=== PATIENT | female | born 1990 | race Caucasian/White ===

== ENCOUNTER → 2016-06-21 | Outpatient (CLI) | payer OTHER | END | disposition home or self-care (01) | LOC: LABWHC1 15:38 | PROVIDERS: ATTEND Nurse Practitioner Acute Care | DX: R90.82 White matter disease, unspecified (principal) | CPT/HCPCS: 36415; 82040; 82042; 82784; 83873; 83916; 84157; 87476; 89050 ==

== ENCOUNTER → 2016-07-12 | Outpatient (CLI) | payer OTHER ==
--- NOTE | 2016-07-13 10:42 | MR ---
MR brain with and without contrast HISTORY: Multiple sclerosis EXAMINATION TYPE: MR brain wo/w con DATE OF EXAM: 07/13/2016 5:57 AM COMPARISON: Prior MR brain third of May 2015 TECHNIQUE: Multiplanar, multisequence images of the brain and brainstem is performed without and with utilizing 15 mL intravenous MultiHance gadolinium contrast. Demyelinating disease protocol with additional Sag ittal Flair sequence performed. FINDINGS: T2 Lesions Present : Yes Approximate Number of Lesions: 2 Locations Identified : Periventricular Size of Reference Lesion(s): Stable compared to previous Enhancing Lesion(s) Present: No T1 Hypointense Lesion(s) Present: Change from Prior: Stable Diffusion weighted images demonstrate no evidence of a recent infarct or other diffusion abnormality. There is no worrisome extra-axial fluid collection. The ventricular system and cisternal spaces ar e normal in size and appearance. The brain volume is age appropriate. Midline structures demonstrate normal morphology. The craniocervical junction appears within normal limits. Post contrast images demonstrate no abnormal enhancement. The dural venous sinuses appear pa tent. The visualized sinuses are showing some minimal inflammatory change in the ethmoid air cells, mucoperiosteal thickening in the maxillary sinus and the globes are intact. IMPRESSION: Stable exam. Indeterminate right frontal white matter hyperintensities of questionable clinical signi ficance.
== END | disposition home or self-care (01) ==
LOC: RADMRIMAIN 18:46
PROVIDERS: ATTEND Nurse Practitioner Acute Care
DX: R90.82 White matter disease, unspecified (principal)
CPT/HCPCS: 70553; A9577

== ENCOUNTER 2016-10-31 02:25 | Emergency (ER) | payer OTHER ==
[2016-10-31] MEDS ORDERED: KETOROLAC 30 MG/ML 1 ML VIAL IVP STA (03:07)
[2016-10-31] MEDS ORDERED: METOCLOPRAMIDE 5 MG/ML 2 ML VIAL IVP STA (03:07)
[2016-10-31] MEDS ORDERED: diphenhydrAMINE 50 MG/ML 1 ML VIAL IVP STA (03:07)
[2016-10-31] MEDS ORDERED: SODIUM CHLORIDE 0.9% 1,000 ML IV STA (03:07)
--- NOTE | 2016-10-31 04:22 | ED ---
Headache HPI - General Chief Complaint: Headache Stated Complaint: Migraine Time Seen by Provider: 10/31/16 02:51 Mode of arrival: ambulatory Limitations: no limitations - History of Present Illness Initial Comments: 26-year-old female patient presents to emergency department today with complaints of right-sided headache. Patient states headache has been present for the last 3 days. States she does have a history of migraine headaches and occipital neuritis. Patient states that headache symptoms are consistent with her usual migraine pattern. Patient states that she has taken for Fioricet tablets today which is unusual for her. Patient states she has been mildly nauseated, does have photosensitivity, and sound sensitivity. The patient denies any dizziness, weakness, neck pain, back pain, abdominal pain, chest pain , shortness of breath, current nausea or vomiting. Denies any fever or chills. States she does have a blurred vision in her right eye which is also very usual for her migraine symptoms. - Related Data Home Medications Medication Instructions Recorded Confirmed Cetirizine HCl 10 mg PO DAILY 03/07/16 07/30/16 Butalb/Asprin/Caff 50-325-40Mg 1 - 2 cap PO Q4HR 07/28/16 07/30/16 [Fiorinal 50-325-40 MG] Multivit with Calcium,Iron,Min 1 each PO DAILY 07/28/16 07/30/16 [Women's Multivitamin] traMADol HCL [Ultram] 50 mg PO Q4HR PRN 07/28/16 07/30/16 Allergies Allergy/AdvReac Type Severity Reaction Status Date / Time Milk Containing Products Allergy Anaphylaxis Verified 10/31/16 02:33 [Dairy] codeine AdvReac Vomiting Verified 10/31/16 02:33 Review of Systems ROS Statement: Those systems with pertinent positive or pertinent negative responses have been documented in the HPI. ROS Other: All systems not noted in ROS Statement are negative. Past Medical History Past Medical History: No Reported History Additional Past Medical History / Comment(s): optic neuritis History of Any Multi-Drug Resistant Organisms: None Reported Past Surgical History: Cholecystectomy Additional Past Surgical History / Comment(s): sinus surgery, eye surgery Past Psychological History: No Psychological Hx Reported Smoking Status: Never smoker Past Alcohol Use History: None Reported Past Drug Use History: None Reported General Exam Limitations: no limitations General appearance: alert, in no apparent distress Head exam: Present: atraumatic, normocephalic, normal inspection Eye exam: Present: normal appearance, PERRL, EOMI. Absent: scleral icterus, conjunctival injection, periorbital swelling ENT exam: Present: normal exam, normal oropharynx, mucous membranes moist, TM's normal bilaterally Neck exam: Present: normal inspection, full ROM, other (No Meningismus present) . Absent: tenderness, meningismus, lymphadenopathy Respiratory exam: Present: normal lung sounds bilaterally. Absent: respiratory distress, wheezes, rales, rhonchi, stridor Cardiovascular Exam: Present: regular rate, normal rhythm, normal heart sounds. Absent: systolic murmur, diastolic murmur, rubs, gallop, clicks GI/Abdominal exam: Present: soft, normal bowel sounds. Absent: distended, tenderness, guarding, rebound, rigid Extremities exam: Present: normal inspection, full ROM, normal capillary refill. Absent: tenderness, pedal edema, joint swelling, calf tenderness Back exam: Present: normal inspection Neurological exam: Present: alert, oriented X3, CN II-XII intact Psychiatric exam: Present: normal affect, normal mood Skin exam: Present: warm, dry, intact, normal color. Absent: rash Course Vital Signs 10/31/16 02:31 Temperature 97.6 F Pulse Rate 78 Respiratory 18 Rate Blood Pressure 113/71 O2 Sat by Pulse 99 Oximetry - Reevaluation(s) Reevaluation #1: 10/31/16 04:22 Checked in with patient who states that her pain is now a 2 out of 10 on the pain scale. Patient states her symptoms are much improved. We'll complete fluid bolus. Medical Decision Making - Medical Decision Making 26-year-old female patient presented today for complaints of migraine headache that was not responsive to her usual migraine medications. Patient was given Benadryl, Reglan, Toradol, and IV fluids which did improve her symptoms. Patient reported that symptoms were typical of her usual migraine pattern. Patient will be discharged home with instructions to continue use of her normal migraine medications. Patient struck to the [facility] primary care physician for recheck in 1-2 days. Patient instructed to return for any new, worsening, or concerning symptoms. Patient verbalizes understanding and agrees with this plan. Disposition Clinical Impression: Migraine Disposition: HOME SELF-CARE Condition: Good Instructions: Migraine Headache (ED) Additional Instructions: Continue home prescriptions for migraine symptom control. Follow up with primary care physician in one to 2 days for recheck. Return for any new, worsening, or concerning symptoms. Referrals: Jeff Zapien Jr, DO [Primary Care Provider] - 1-2 days Time of Disposition: 05:07
[2016-10-31 05:30] VITALS: BP 104/69; PULSE 72; RESP 16; TEMP 98.3
== END 2016-10-31 05:32 | disposition home or self-care (01) ==
LOC: EC 02:25
DX: G43.909 Migraine, unspecified, not intractable, without status migrainosus (principal); H46.9 Unspecified optic neuritis; Z98.890 Other specified postprocedural states; Z79.899 Other long term (current) drug therapy; Z91.011 Allergy to milk products; Z88.5 Allergy status to narcotic agent; Z79.82 Long term (current) use of aspirin
CPT/HCPCS: 99283 ×2; 96374 ×2; 96375 ×3; J1200; J2765; J1885

== ENCOUNTER → 2017-02-15 | Outpatient (CLI) | payer OTHER ==
--- NOTE | 2017-02-16 00:34 | MR ---
EXAMINATION TYPE: MR brain wo/w con DATE OF EXAM: 02/15/2017 COMPARISON: 07/12/2016 HISTORY: MS Progression TECHNIQUE: Multiplanar, multisequence images of the brain and brainstem is performed without and with IV contras t, utilizing 7.5 mL intravenous Gadavist . FINDINGS: Ventricles and sulci appear normal. There is no mass effect nor midline shift. There is no sign of in tracranial hemorrhage. There is a 4 mm focus of increased signal at the white matter right frontal lo be on the T2 and FLAIR images. The brainstem appears normal. Corpus callosum appears normal. I see no pathologic enhancement. Sella turcica appears normal. IMPRESSION: Single focus of increased signal is small in the right frontal lobe and unchanged compare d to last exam. I do not see any significant evidence for demyelinating disease.
== END | disposition home or self-care (01) ==
LOC: RADMRIMAIN 18:57
PROVIDERS: ATTEND Nurse Practitioner Acute Care
DX: G35 Multiple sclerosis (principal); Z88.5 Allergy status to narcotic agent; Z88.8 Allergy status to other drugs, medicaments and biological substances
CPT/HCPCS: 70553; A9581

== ENCOUNTER → 2017-02-21 | Outpatient (CLI) | payer OTHER ==
[2017-02-21 14:56] LABS: Basophils % (A) 0 %; CH 30.3; CHCM 33.1; Eosinophils # (A) 0.1 k/uL (0-0.7); Eosinophils % (A) 1 %; HCT 43.3 % (34.0-46.0); HDW 2.55; Luc # (Auto) 0.09; Luc % (Auto) 2; Lymphocytes # (A) 1.3 k/uL (1.0-4.8); Lymphocytes % (A) 24 %; MCH 29.6 pg (25.0-35.0); MCHC 32.3 g/dL (31.0-37.0); MCV 91.8 fL (80.0-100.0); Mean Platelet Volume 8.3; Monocytes # (A) 0.3 k/uL (0-1.0); Monocytes % (A) 6 %; Neutrophils # (A) 3.4 k/uL (1.3-7.7); Neutrophils % (A) 67 %; RBC 4.71 m/uL (3.80-5.40); RDW 12.6 % (11.5-15.5); WBC 5.1 k/uL (3.8-10.6); WBC (Perox) 5.08
[2017-02-21 15:58] LABS: ALT 31 U/L (9-52); AST 19 U/L (14-36); Alkaline Phosphatase 46 U/L (38-126); Anion Gap 9 mmol/L; Blood Urea Nitrogen 13 mg/dL (7-17); Calcium 9.1 mg/dL (8.4-10.2); Carbon Dioxide 23 mmol/L (22-30); Chloride 108 mmol/L (98-107); Glucose 84 mg/dL (74-99); Non-African American GFR(MDRD) >60 (>60 ml/min/1.73 sqM); Potassium 4.3 mmol/L (3.5-5.1); Sodium 140 mmol/L (137-145); Total Bilirubin 0.2 mg/dL (0.2-1.3); Total Protein 6.3 g/dL (6.3-8.2)
[2017-02-21 20:42] LABS: Appearance,CSF Clear
[2017-02-24 12:03] LABS: Immunoglobulin G 827 mg/dL (700 - 1600)
[2017-02-25 13:38] LABS: Lyme Specimen Source csf
== END | disposition home or self-care (01) ==
LOC: LABWHC1 14:19
PROVIDERS: ATTEND Nurse Practitioner Acute Care
DX: R90.82 White matter disease, unspecified (principal); H53.8 Other visual disturbances; E55.9 Vitamin D deficiency, unspecified; G35 Multiple sclerosis
CPT/HCPCS: 36415; 80053; 82040; 82042; 82306; 82607; 82784; 83873; 83916; 84157; 84439; 84443; 84481; 85025; 87476; 88108; 89050

== ENCOUNTER → 2017-03-16 | Outpatient (CLI) | payer OTHER ==
--- NOTE | 2017-03-16 17:25 | US ---
EXAMINATION TYPE: US pelvic complete DATE OF EXAM: 03/16/2017 COMPARISON: 10/15/2011 CLINICAL HISTORY: [id number] IUD placement. TECHNIQUE: Transabdominal (TA) Date of LMP: 03/10/2017 EXAM MEASUREMENTS: Uterus: 7.9 x 4.0 x 6.1 cm Endometrial Stripe: 0.4 cm Right Ovary: 2.8 x 2.7 x 2.7 cm Left Ovary: 2.6 x 2.5 x 2.7 cm 1. Uterus: Anteverted 2. Endometrium: IUD in place 3. Right Ovary: wnl 4. Left Ovary: wnl 5. Bilateral Adnexa: wnl 6. Posterior cul-de-sac: no free fluid Patient chose to defer transvaginal exam at this time IMPRESSION: No significant abnormality appreciated. IUD is appropriately placed.
== END | disposition home or self-care (01) ==
LOC: RADUSWWP 15:51
PROVIDERS: ATTEND Obstetrics & Gynecology
DX: T83.32XA Displacement of intrauterine contraceptive device, initial encounter (principal)
CPT/HCPCS: 76856

== ENCOUNTER → 2017-04-06 | Outpatient (CLI) | payer OTHER | END | disposition home or self-care (01) | LOC: LABWHC1 12:12 | PROVIDERS: ATTEND Nurse Practitioner Acute Care | DX: G35 Multiple sclerosis (principal) | CPT/HCPCS: 36415; 86255 ==

== ENCOUNTER → 2017-04-14 | Outpatient (CLI) | payer OTHER ==
--- NOTE | 2017-04-14 23:45 | MR ---
EXAMINATION TYPE: MR cervical spine wo/w con DATE OF EXAM: 04/14/2017 COMPARISON: NONE HISTORY: Neck pain, R/O MS TECHNIQUE: Multiplanar, multisequence images of the cervical spine were acquired utilizing 5 mL intravenous Gada vist gadolinium contrast. Diffusion weighted imaging was performed. Cervical vertebra have normal alignment. Disc spaces are normal. There is no compression fracture. Po sterior elements are intact. Cervical spinal cord has normal signal pattern without evidence of edema . There is no spinal stenosis. There is no evidence of cervical disc herniation. There is no cervical paraspinal mass. The contrast images show no pathologic enhancement. IMPRESSION: Negative MR scan of the cervical spine. No evidence of demyelinating disease.
== END | disposition home or self-care (01) ==
LOC: RADMRIMAIN 20:00
PROVIDERS: ATTEND Nurse Practitioner Acute Care
DX: M54.2 Cervicalgia (principal); Z88.5 Allergy status to narcotic agent; Z88.8 Allergy status to other drugs, medicaments and biological substances
CPT/HCPCS: 72156; A9581

== ENCOUNTER → 2017-06-13 | Outpatient (CLI) | payer OTHER ==
[2017-06-13 14:56] LABS: Basophils % (A) 1 %; Eosinophils # (A) 0.1 k/uL (0-0.7); Eosinophils % (A) 1 %; HGB 13.8 gm/dL (11.4-16.0); Lymphocytes # (A) 1.5 k/uL (1.0-4.8); Lymphocytes % (A) 33 %; MCH 29.3 pg (25.0-35.0); MCHC 32.9 g/dL (31.0-37.0); MCV 89.1 fL (80.0-100.0); Mean Platelet Volume 8.4; Monocytes # (A) 0.3 k/uL (0-1.0); Monocytes % (A) 7 %; Neutrophils # (A) 2.6 k/uL (1.3-7.7); Neutrophils % (A) 57 %; Platelet Count 207 k/uL (150-450); RBC 4.72 m/uL (3.80-5.40); RDW 12.9 % (11.5-15.5); WBC 4.5 k/uL (3.8-10.6)
[2017-06-13 15:15] LABS: ALT 39 U/L (9-52); AST 35 U/L (14-36); Albumin 4.2 g/dL (3.5-5.0); Alkaline Phosphatase 49 U/L (38-126); Anion Gap 10 mmol/L; Blood Urea Nitrogen 14 mg/dL (7-17); Calcium 9.4 mg/dL (8.4-10.2); Carbon Dioxide 28 mmol/L (22-30); Chloride 105 mmol/L (98-107); Glucose 71 mg/dL (74-99); Potassium 3.9 mmol/L (3.5-5.1); Sodium 143 mmol/L (137-145); Total Bilirubin 0.3 mg/dL (0.2-1.3)
[2017-06-13 20:39] LABS: Iron Saturation 44.48 (12.00-45.00)
[2017-06-13 20:45] LABS: Vitamin D 25 Hydroxy 28.2 ng/mL (30.0-100.0)
[2017-06-14 03:15] LABS: Egg White IgE <0.10 kU/L
[2017-06-14 12:15] LABS: Egg Yolk IgE Class CLASS 0
== END | disposition home or self-care (01) ==
LOC: LABWHC1 14:33
PROVIDERS: ATTEND Nurse Practitioner Acute Care
DX: G35 Multiple sclerosis (principal); E55.9 Vitamin D deficiency, unspecified
CPT/HCPCS: 36415; 80053; 82306; 82607; 82785; 83540; 83550; 84466; 85025; 86003

== ENCOUNTER → 2017-06-23 | Outpatient (CLI) | payer OTHER ==
--- NOTE | 2017-06-24 05:02 | MR ---
EXAMINATION TYPE: MR brain wo/w con DATE OF EXAM: 06/23/2017 COMPARISON: Prior MRI brain February 15, 2017. HISTORY: MS, progress study. TECHNIQUE: Multiplanar, multisequence images of the brain and brainstem is performed without and with IV contras t, utilizing 7.5 mL intravenous Gadavist gadolinium contrast is administered intravenously. Demyelin ating disease protocol with additional Sagittal Flair sequence performed. FINDINGS: T2 Lesions Present : Yes Approximate Number of Lesions: 2 Size of Reference Lesion(s): There is persistent 3 mm right frontal lesion axial image 17 and sagittal image 22 stable. Just infer ior, posterior and medial to this previously visualized 2 mm lesion is not as well-seen on current st udy, likely still present on axial T2 image 16. Enhancing lesions(s) Present: No Change from Prior: Stable Diffusion weighted images demonstrate no evidence of a recent infarct or other diffusion abnormality. There is no worrisome extra-axial fluid collection. The ventricular system and cisternal spaces ar e normal in size and appearance. The brain volume is age appropriate. Midline structures demonstrate normal morphology. The craniocervical junction appears within normal limits. Post contrast images demonstrate no abnormal enhancement. The dural venous sinuses appear pa tent. The visualized sinuses are clear and the globes are intact. IMPRESSION: Stable 1-2 tiny right frontal lesions. No new or enhancing lesions are evident.
== END | disposition home or self-care (01) ==
LOC: RADMRIMAIN 15:56
PROVIDERS: ATTEND Psychiatry & Neurology Neurology
DX: G35 Multiple sclerosis (principal); Z88.5 Allergy status to narcotic agent; Z91.011 Allergy to milk products
CPT/HCPCS: 70553; A9581

== ENCOUNTER → 2017-12-16 | Outpatient (CLI) | payer OTHER ==
[2017-12-20 09:34] LABS: Lyme IgG/IgM 0.1 Index
== END | disposition home or self-care (01) ==
LOC: LABWHC1 08:36
PROVIDERS: ATTEND Psychiatry & Neurology Neurology
DX: G35 Multiple sclerosis (principal); H46.9 Unspecified optic neuritis
CPT/HCPCS: 36415; 82164; 82607; 85652; 86038; 86618; 86780

== ENCOUNTER → 2018-01-12 | Day surgery (SDC) | payer OTHER ==
[~2018-01-12] MED LIST: SODIUM CHLORIDE 0.9% 1,000 ML IV ONE; SODIUM CHLORIDE 0.9% 500 ML 500 ML in EMPTY BAG 1 BAG IV PRN
[2018-01-12 12:25] VITALS: BP 101/66; PULSE 67; RESP 15; TEMP 97.8
--- NOTE | 2018-01-12 14:56 | P.PCN ---
Date of Procedure: 01/12/18 Procedure(s) Performed: Operation= epidural blood patch. preoperative diagnosis= post dural puncture headache. Post operative diagnoses= post dural puncture headache. Anesthesia= local infiltration with lidocaine 1% 3 ml Condition= stable. Complications= none. Indication for the procedure= this patient had lumbar puncture done yesterday for diagnostic purposes, and currently patient complaining of severe positional headache, improved with the supine position and increased with the sitting and standing position, and she is diagnosed with post dural puncture headache, there is no focal neurological deficit, no fever,, and no neck stiffness, patient is a good candidate to have epidural blood patch, because the conservative treatment failed, risks and benefits of the procedure discussed with the patient and agreed with proceeding, Description of the procedure= patient in sitting position, back lumbar area prepped with chlorhexidine x3 times then the back draped , then L5 S1 interlaminar space local infiltration of the skin and subcu tissues with lidocaine 1% 3 mL, then 20-gauge Tuohy needle, advanced at the L5-S1 interlaminar space, as positive loss of resistance to normal saline, was no heme and no paresthesia, no cerebrospinal fluid, then after that 20 mL of autologous blood taken under strict sterile technique from the left antecubital area, after prepped with the chlorhexidine 3 times, and using Angiocath 20 ML of the block taken from the antecubital vein under strict sterile technique injected in the epidural space after negative aspiration for heme or cerebrospinal fluid, and there was no paresthesia, and after 20 ML of the blood injected in the epidural space ,headache improved, and patient tolerated the procedure well without any complication and patient discharged home after discharge criteria met and patient will follow up with her primary care.
== END | disposition home or self-care (01) ==
LOC: PROCWHC3 11:55
PROVIDERS: ATTEND Family Medicine
DX: G97.1 Other reaction to spinal and lumbar puncture (principal)
CPT/HCPCS: 62273

== ENCOUNTER 2018-07-07 20:53 | Emergency (ER) | payer OTHER ==
[2018-07-07 21:03] VITALS: BP 115/79; PULSE 77; RESP 20; TEMP 97.8
[2018-07-07] MEDS ORDERED: MORPHINE SULFATE 4 MG/ML SYRINGE IM STA (21:13)
--- NOTE | 2018-07-07 21:47 | CT ---
EXAMINATION TYPE: CT brain martha montgomery con DATE OF EXAM: 07/07/2018 COMPARISON: None HISTORY: fell down flight of stairs hitting head CT DLP: 1251.5 mGycm Automated exposure control for dose reduction was used. TECHNIQUE: CT scan of the head and cervical spine are performed without contrast. FINDINGS: Ventricles and sulci appear normal. There is no mass effect nor midline shift. There is n o sign of intracranial hemorrhage. The calvarium is intact. The cervical vertebra have fairly normal spacing and alignment. Posterior elements are intact. Skull base is intact. There is no evidence of a fracture. Facet joints are intact. IMPRESSION: Negative CT scan of the cervical spine. Number of negative CT scan of the brain.
[2018-07-07] MEDS ORDERED: KETOROLAC 30 MG/ML 1 ML VIAL IM STA (22:32)
[2018-07-07] MEDS ORDERED: LIDOCAINE 5% PATCH TOPICAL STA (22:33)
--- NOTE | 2018-07-07 22:48 | XR ---
EXAM: XR Left Shoulder Complete, 2 or More Views CLINICAL HISTORY: Reason: Pain TECHNIQUE: Two or more views of the left shoulder. COMPARISON: Left shoulder radiographs 12/02/2013 FINDINGS: Bones/joints: No evidence of acute fracture or dislocation. Mild widening of acromioclavicular joint space as compared to prior examination of 12/02/2013. No significant arthritic changes. IMPRESSION: No evidence of acute fracture or dislocation. Mild widening of acromioclavicular joint space which may reflect ligamentous injury.
--- NOTE | 2018-07-07 23:01 | ED ---
General Adult HPI - General Source: patient, RN notes reviewed Mode of arrival: ambulatory Limitations: no limitations <Primo Hager P - Last Filed: 07/07/18 23:12> <Yvonne Shields P - Last Filed: 07/08/18 06:27> - General Chief complaint: Fall Stated complaint: Fall-[place]oulder Injury Time Seen by Provider: 07/07/18 21:05 - History of Present Illness Initial comments: 28-year-old female presents to the emergency department for a chief complaint of left shoulder pain after a fall. Patient states she fell down about 5 stairs. Patient did hit her head and lose consciousness. She claims of left-sided neck pain and left shoulder pain. States it is painful to move her left shoulder. Denies being on any blood thinners. Denies any other injuries, no back pain chest pain or abdominal pain. No pain in the lower extremities.Patient has no other complaints at this time including shortness of breath, chest pain, abdominal pain, nausea or vomiting, headache, or visual changes. (Primo Hager) - Related Data Home Medications Medication Instructions Recorded Confirmed Butalb/Asprin/Caff 50-325-40Mg 1 - 2 cap PO Q4HR 07/28/16 01/12/18 [Fiorinal 50-325-40 MG] Multivit with Calcium,Iron,Min 1 each PO DAILY 07/28/16 01/12/18 [Women's Multivitamin] Ergocalciferol [Vitamin D2] 50,000 unit PO Q7D 01/12/18 01/12/18 Topiramate [Topamax] 150 mg PO DAILY 01/12/18 01/12/18 Allergies Allergy/AdvReac Type Severity Reaction Status Date / Time Milk Containing Products Allergy Anaphylaxis Verified 07/07/18 21:02 [Dairy] codeine AdvReac Vomiting Verified 07/07/18 21:02 Review of Systems ROS Other: All systems not noted in ROS Statement are negative. <Primo Hager P - Last Filed: 07/07/18 23:12> ROS Other: All systems not noted in ROS Statement are negative. <Yvonne Shields P - Last Filed: 07/08/18 06:27> ROS Statement: Those systems with pertinent positive or pertinent negative responses have been documented in the HPI. Past Medical History Past Medical History: No Reported History Additional Past Medical History / Comment(s): optic neuritis, migraines History of Any Multi-Drug Resistant Organisms: None Reported Past Surgical History: Cholecystectomy Additional Past Surgical History / Comment(s): sinus surgery, eye surgery, IUD removal Past Anesthesia/Blood Transfusion Reactions: No Reported Reaction Past Psychological History: No Psychological Hx Reported Smoking Status: Never smoker Past Alcohol Use History: None Reported Past Drug Use History: Marijuana <Primo Hager P - Last Filed: 07/07/18 23:12> General Exam Limitations: no limitations General appearance: alert, in no apparent distress Head exam: Present: atraumatic, normocephalic, normal inspection Eye exam: Present: normal appearance, PERRL, EOMI. Absent: scleral icterus, conjunctival injection, periorbital swelling ENT exam: Present: normal exam, normal oropharynx, mucous membranes moist, TM's normal bilaterally, normal external ear exam Neck exam: Present: tenderness (Mild C-spine tenderness, also left-sided paraspinal tenderness), other (C-collar in place at this time). Absent: meningismus, lymphadenopathy Respiratory exam: Present: normal lung sounds bilaterally. Absent: respiratory distress, wheezes, rales, rhonchi, stridor Cardiovascular Exam: Present: regular rate, normal rhythm, normal heart sounds. Absent: systolic murmur, diastolic murmur, rubs, gallop, clicks GI/Abdominal exam: Present: soft, normal bowel sounds. Absent: distended, tenderness, guarding, rebound, rigid Extremities exam: Present: tenderness (Tenderness noted to the before meals joint of the left shoulder), normal capillary refill (Capillary refill less than 2 seconds, radial pulse 2+), other (Patient intact the left upper extremity, no ecchymosis or edema present.). Absent: full ROM (Patient has 20 flexion and abduction of the left shoulder) Neurological exam: Present: alert, oriented X3, CN II-XII intact Psychiatric exam: Present: normal affect, normal mood <Primo Hager P - Last Filed: 07/07/18 23:12> Course Vital Signs 07/07/18 20:59 Temperature 97.8 F Pulse Rate 77 Respiratory 20 Rate Blood Pressure 115/79 O2 Sat by Pulse 100 Oximetry Medical Decision Making <Primo Hager P - Last Filed: 07/07/18 23:12> <Yvonne Shields P - Last Filed: 07/08/18 06:27> - Medical Decision Making 28 year old female after a fall down 5 steps. Patient presents for left shoulder pain and left-sided neck pain. Patient did hit her head and lose consciousness. Neurovascular status intact the left upper extremity however limited range of motion. Tenderness over the AC joint. Patient has c-collar in place with tenderness over the C-spine and left paraspinal areas. Negative computed tomography scan of the cervical spine, C-spine is cleared. Negative computed tomography scan of the brain. The left shoulder does show a mild widening of the acromioclavicular joint space which may reflect ligamentous i njury. This is clinically correlated to patient's pain. Patient was placed in a sling and educated on range of motion exercises to prevent frozen shoulder. Discussed follow-up with orthopedics in one to 2 days as well as Motrin and Tylenol for pain as well as icing. Discussed returning here to the emergency Department if she has any worsening symptoms. (Primo Hager) I was available for consultation in the emergency department. The history and physical exam were done by the midlevel provider. I was consulted for this patient's care. I reviewed the case with the midlevel provider and based on their presentation of the patient, I agree with the assessment, medical decision making and plan of care as documented. (Yvonne Shields) Disposition Is patient prescribed a controlled substance at d/c from ED?: No Time of Disposition: 23:04 <Primo Hager P - Last Filed: 07/07/18 23:12> <Yvonne Shields - Last Filed: 07/08/18 06:27> Clinical Impression: Acromioclavicular joint separation Disposition: HOME SELF-CARE Condition: Good Instructions (If sedation given, give patient instructions): Acromioclavicular Separation (ED), Shoulder Pain (ED) Additional Instructions: Please take Motrin and Tylenol for pain. Apply ice. Wear sling as needed. Do range of motion exercises while wearing the sling to prevent frozen shoulder. Follow-up with primary care and orthopedics in one to 2 days. Return here to the emergency department if you have any worsening symptoms. Referrals: Jeff Zapien Jr, [Primary Care Provider] - 1-2 days Jeff Gonzalez MD [STAFF PHYSICIAN] - 1-2 days
== END 2018-07-07 23:00 | disposition home or self-care (01) ==
LOC: EC 20:53
DX: S43.102A Unspecified dislocation of left acromioclavicular joint, initial encounter (principal); M54.2 Cervicalgia; Z79.899 Other long term (current) drug therapy; Z88.5 Allergy status to narcotic agent; Z91.011 Allergy to milk products; W10.9XXA Fall (on) (from) unspecified stairs and steps, initial encounter; Y92.009 Unspecified place in unspecified non-institutional (private) residence as the place of occurrence of the external cause
CPT/HCPCS: 99284; 96372 ×2; 73030; 72125; 70450; J2270; J1885

== ENCOUNTER → 2019-05-30 | Outpatient (CLI) | payer OTHER ==
--- NOTE | 2019-05-30 16:00 | XR ---
EXAMINATION TYPE: XR shoulder complete LT DATE OF EXAM: 05/30/2019 COMPARISON: NONE HISTORY: Pain TECHNIQUE: Three views are submitted. FINDINGS: There is absorption of the distal clavicle which may been the basis of previous trauma relate clinica lly. Results in widening of the AC joint. Slight elevation of the clavicle can be associated with an AC joint separation. No acute fracture. No dislocation. IMPRESSION: 1. There is resorption of the distal clavicle with widening of the AC joint and slight elevation of t he clavicle correlate for AC joint separation. Consider MRI follow-up.
== END | disposition home or self-care (01) ==
LOC: RAD 15:35
PROVIDERS: ATTEND Family Medicine
DX: M25.812 Other specified joint disorders, left shoulder (principal); R10.10 Upper abdominal pain, unspecified

== ENCOUNTER → 2020-07-11 | Outpatient (CLI) | payer OTHER ==
--- NOTE | 2020-07-12 14:23 | MR ---
EXAMINATION TYPE: MR shoulder LT wo con DATE OF EXAM: 07/11/2020 COMPARISON: None HISTORY: Lefrt shoulder pain, injury 2 years ago Multiplanar multiecho imaging of the left shoulder was performed without contrast. The glenohumeral joint is intact. Glenoid dilia appear normal. There is very small shoulder joint eff usion. This fluid is seen inferior to the subscapularis tendon. The supraspinatus tendon appears inta ct. There is no retraction. Subacromial joint space is fairly normal. Subscapularis tendon is intact. Biceps tendon is intact. There is no evidence of a fracture. I see no bony destructive process. There is no evidence of a soft tissue mass. IMPRESSION: No evidence of rotator cuff tear. Small shoulder joint effusion suggestive of some minimal synovitis.
== END | disposition home or self-care (01) ==
LOC: RADMRIMAIN 15:37
PROVIDERS: ATTEND Orthopaedic Surgery
DX: M25.412 Effusion, left shoulder (principal)

== ENCOUNTER → 2022-03-29 | Outpatient (CLI) | payer OTHER ==
[2022-03-29 17:55] LABS: Basophils # (A) 0.05 X 10*3/uL (0.00-0.10); Basophils % (A) 0.8 %; Eosinophils # (A) 0.16 X 10*3/uL (0.04-0.35); Eosinophils % (A) 2.5 %; HCT 45.1 % (37.2-46.3); HGB 14.8 g/dL (12.0-15.0); Immature Grans, Automated 0.3 %; Lymphocytes # (A) 1.95 X 10*3/uL (0.90-5.00); Lymphocytes % (A) 30.8 %; MCH 30.3 pg (27.0-32.0); MCHC 32.8 g/dL (32.0-37.0); MCV 92.2 fL (80.0-97.0); Mean Platelet Volume 12.1 fL (9.5-12.2); Monocytes # (A) 0.45 X 10*3/uL (0.20-1.00); Monocytes % (A) 7.1 %; NRBC Per 100 WBC 0 /100 WBCS (0.0-0.0); Neutrophils % (A) 58.5 %; Platelet Count 210 X 10*3/uL (140-440); RBC 4.89 X 10*6/uL (4.10-5.20); RDW 12.1 % (11.5-14.5); WBC 6.33 X 10*3/uL (4.50-10.00)
== END | disposition home or self-care (01) ==
LOC: LABPAT 14:30
PROVIDERS: ATTEND Obstetrics & Gynecology
DX: Z01.812 Encounter for preprocedural laboratory examination (principal)
CPT/HCPCS: 36415; 85025

== ENCOUNTER 2022-04-01 08:59 | Day surgery (SDC) | payer OTHER ==
[2022-03-26 14:57] VITALS: BMI 22.3
--- NOTE | 2022-03-31 16:20 | P.HPOB ---
History of Present Illness H&P Date: 03/31/22 Chief Complaint: family planning 32 year old presents for laparoscopic tubal ligation and removal of paragard IUD. Review of Systems All systems: negative Constitutional: Denies chills, Denies fever Eyes: denies blurred vision, denies pain Ears, nose, mouth and throat: Denies headache, Denies sore throat Cardiovascular: Denies chest pain, Denies shortness of breath Respiratory: Denies cough Gastrointestinal: Denies abdominal pain, Denies diarrhea, Denies nausea, Denies vomiting Genitourinary: Denies dysuria, Denies hematuria Musculoskeletal: Denies myalgias Integumentary: Denies pruritus, Denies rash Neurological: Denies numbness, Denies weakness Psychiatric: Denies anxiety, Denies depression Endocrine: Denies fatigue, Denies weight change Past Medical History Past Medical History: No Reported History Additional Past Medical History / Comment(s): optic neuritis, migraines History of Any Multi-Drug Resistant Organisms: None Reported Past Surgical History: Cholecystectomy Additional Past Surgical History / Comment(s): sinus surgery, eye surgery, IUD removal Past Anesthesia/Blood Transfusion Reactions: No Reported Reaction Past Psychological History: Anxiety, Depression Smoking Status: Never smoker Past Alcohol Use History: None Reported Past Drug Use History: None Reported - Past Family History Mother Family Medical History: No Reported History Medications and Allergies Home Medications Medication Instructions Recorded Confirmed Type Ergocalciferol [Vitamin D2] 50,000 unit PO Q7D 01/12/18 03/26/22 History Topiramate [Topamax] 300 mg PO DAILY 01/12/18 03/26/22 History Allergies Allergy/AdvReac Type Severity Reaction Status Date / Time Milk Containing Products Allergy Anaphylaxis Verified 03/26/22 14:37 [Dairy] codeine AdvReac Vomiting Verified 03/26/22 14:37 Exam Osteopathic Statement: *. No significant issues noted on an osteopathic struct ural exam other than those noted in the History and Physical/Consult. HEart: RRR Lungs: CTAB Abdomen: soft, nontender Extremeties: neg justin's Assessment and Plan (1) Family planning Status: Acute Code(s): Z30.09 - ENCOUNTER FOR OTH GENERAL CNSL AND ADVICE ON CONTRACEPTION SNOMED Code(s): 842576477 (2) Awaiting removal of contraceptive intrauterine device (IUD) Status: Acute Code(s): Z30.432 - ENCOUNTER FOR REMOVAL OF INTRAUTERINE CONTRACEPTIVE DEVICE SNOMED Code(s): 994182144 Plan: 1. laparoscopic tubal ligation with removal of paragard IUD
[~2022-04-01 08:59] MED LIST changes: +DEXAMETHASONE SOD PHOSPHATE 4 MG/ML 1 ML VIAL IV ONE; +HYDROmorphone 0.5 MG/0.5 ML SYRINGE IVP PRN; +LACTATED RINGERS 1,000 ML IV SCH; +ONDANSETRON 4 MG/2 ML VIAL IVP ONE; +Pre Op ABX Message 1 EACH MISC MISCELLANE ONE; -SODIUM CHLORIDE 0.9% 1,000 ML IV ONE; -SODIUM CHLORIDE 0.9% 500 ML 500 ML in EMPTY BAG 1 BAG IV PRN
[2022-04-01 09:12] VITALS: TEMP 98.5
[2022-04-01] MEDS ORDERED: MIDAZOLAM 2 MG/2 ML VIAL IVP ONE (09:30)
[2022-04-01] MEDS ORDERED: KETOROLAC 15 MG/ML 1 ML VIAL ONE (10:04)
[2022-04-01] MEDS ORDERED: NEOSTIGMINE 1 MG/ML 10 ML VIAL ONE (10:04)
[2022-04-01] MEDS ORDERED: LIDOCAINE 2% INJ 20 MG/ML (2 ML VIAL) ONE (10:04)
[2022-04-01] MEDS ORDERED: PROPOFOL 10 MG/ML 20 ML VIAL IV ONE (10:04)
[2022-04-01] MEDS ORDERED: GLYCOPYRROLATE 0.2 MG/ML 2 ML VIAL ONE (10:04)
[2022-04-01] MEDS ORDERED: MIDAZOLAM 2 MG/2 ML VIAL ONE (10:04)
[2022-04-01] MEDS ORDERED: HYDROmorphone (PF) 1 MG/ML ONE (10:04)
[2022-04-01] MEDS ORDERED: fentaNYL (PF) 50 MCG/ML 2 ML AMP ONE (10:04)
[2022-04-01] MEDS ORDERED: SUCCINYLCHOLINE CHLORIDE 200 MG/10 ML VIAL IV ONE (10:04)
[2022-04-01] MEDS ORDERED: ROCURONIUM 10 MG/ML (5 ML VIAL) IV ONE (10:04)
[2022-04-01] MEDS ORDERED: BUPIVACAINE (PF) 0.25% 30 ML VIAL SQ ONE ×2 (10:23→10:30)
--- NOTE | 2022-04-01 10:52 | P.OP ---
Date of Procedure: 04/01/22 Preoperative Diagnosis: 1. family planning Postoperative Diagnosis: family planning Procedure(s) Performed: Laparoscopic tubal ligation Anesthesia: CUAUHTEMOC Surgeon: Lauryn Edwards Estimated Blood Loss (ml): 5 IV fluids (ml): 300 Urine output (ml): 50 Pathology: none sent Condition: stable Disposition: PACU Operative Findings: Normal uterus, tubes, ovaries. Description of Procedure: Patient was taken to the operating room where general anesthesia was obtained without difficulty. She was prepped and draped in normal sterile fashion in the dorsal lithotomy position, legs placed in the Yoan stirrups. Bladder drained of all urine. [place] speculum placed in the vagina and the anterior lip the cervix was grasped with single-tooth tenaculum. The uterus is sounded to 9 cm and the kroner manipulator was placed. Attention was then turned to the abdomen and gloves were changed. A 10 mm infraumbilical incision was made the scalpel and 10 mm optical trocar was placed under direct visualization. A 5 mm suprapubic Incision was made and a 5 mm optical trocar was placed under direct visualization. Survey of the pelvis revealed normal uterus tubes and ovaries. The left fallopian tube was grasped with a Kleppinger and fulgurated 2-3 cm on this side in the ampullar portion. The right fallopian tube was grasped with a Kleppinger and fulgurated 2-3 cm in the ampullar portion. All instruments were then removed from the abdomen and vagina. The 10 mm infraumbilical incision was closed with 0 Vicryl and the fascial layer and then 4-0 Vicryl in a subcuticular fashion. The 5 mm incision was closed with 4-0 Vicryl in a subcuticular fashion. Patient tolerated procedure well, sponge and instrument counts correct 2 and she was taken to recovery room in stable condition.
[2022-04-01 11:34] VITALS: RESP 16
[2022-04-01] MEDS ORDERED: METOCLOPRAMIDE 5 MG/ML 2 ML VIAL ONE (13:11)
[2022-04-01] MEDS ORDERED: ONDANSETRON 4 MG/2 ML VIAL ONE (13:11)
[2022-04-01] MEDS ORDERED: METOCLOPRAMIDE 5 MG/ML 2 ML VIAL IVP ONE (13:15)
[2022-04-01] MEDS ORDERED: ONDANSETRON 4 MG/2 ML VIAL IVP ONE (13:15)
[2022-04-01 13:43] VITALS: BP 92/57; PULSE 109
== END 2022-04-01 14:08 | disposition home or self-care (01) ==
LOC: OR 08:59
PROVIDERS: ATTEND Obstetrics & Gynecology
DX: Z30.2 Encounter for sterilization (principal); F41.9 Anxiety disorder, unspecified; F32.A Depression, unspecified; F17.200 Nicotine dependence, unspecified, uncomplicated; G43.909 Migraine, unspecified, not intractable, without status migrainosus; Z88.5 Allergy status to narcotic agent; Z90.49 Acquired absence of other specified parts of digestive tract; Z79.899 Other long term (current) drug therapy
CPT/HCPCS: 81025; 58670; J2250; J0330; J1100; J2710; J2765; J2405; J3010; J1170 ×2; J1885; J2704; J1790; J2001

== ENCOUNTER → 2022-06-17 | Outpatient (CLI) | payer OTHER ==
--- NOTE | 2022-06-17 22:08 | CT ---
EXAMINATION TYPE: CT abdomen pelvis wo con DATE OF EXAM: 06/17/2022 HISTORY: LOWER ABDOMINAL/ OVARIAN PAIN. CT DLP: 278.50 mGycm. Automated Exposure Control for Dose Reduction was Utilized. TECHNIQUE: CT scan of the abdomen and pelvis is performed without oral or IV contrast. COMPARISON: Pelvic ultrasound August 05, 2021 FINDINGS: Within the limitations of a non-contrast study, the following observations are made. LUNG BASES: No significant abnormality is appreciated. LIVER/GB: Cholecystectomy clips are seen. PANCREAS: No significant abnormality is seen. SPLEEN: No significant abnormality is seen. ADRENALS: No significant abnormality is seen. KIDNEYS: No renal stones or hydronephrosis is present bilaterally. BOWEL: No suspicious small or large bowel dilatation. Normal-appearing appendix from the cecum in the right pelvis. GENITAL ORGANS: Anteverted uterus. Occasional scattered tiny pelvic phlebolith. No free fluid. LYMPH NODES: No greater than 1cm abdominal or pelvic lymph nodes are appreciated. OSSEOUS STRUCTURES: No significant abnormality is seen. OTHER: No significant additional abnormality is seen. IMPRESSION: No acute findings are seen.
== END | disposition home or self-care (01) ==
LOC: RADCTMAIN 18:06
PROVIDERS: ATTEND Family Medicine
DX: R10.2 Pelvic and perineal pain (principal); R10.30 Lower abdominal pain, unspecified
CPT/HCPCS: 74176

== ENCOUNTER → 2022-09-27 | Outpatient (CLI) | payer OTHER ==
[2022-09-27 21:00] LABS: ALT 30 U/L (8-44); AST 25 U/L (13-35); Albumin 4.3 d/dL (3.8-4.9); Albumin/Globulin Ratio 2.15 Ratio (1.60-3.17); Alkaline Phosphatase 47 U/L (41-126); BUN/Creat Ratio 14.71 Ratio (12.00-20.00); Blood Urea Nitrogen 10.3 mg/dL (9.0-27.0); Calcium 9.3 mg/dL (8.7-10.3); Carbon Dioxide 23.5 mmol/L (21.6-31.8); Chloride 108 mmol/L (96-109); Glucose 81 mg/dL (70-110); Sodium 140 mmol/L (135-145); Total Bilirubin 0.5 mg/dL (0.3-1.2); Total Protein 6.3 d/dL (6.2-8.2)
[2022-09-27 22:49] LABS: Basophils # (A) 0.03 X 10*3/uL (0.00-0.10); Basophils % (A) 0.6 %; Eosinophils # (A) 0.06 X 10*3/uL (0.04-0.35); Eosinophils % (A) 1.3 %; HCT 46.9 % (37.2-46.3); HGB 15.3 d/dL (12.0-15.0); Lymphocytes % (A) 32.3 %; MCH 30.9 pg (27.0-32.0); MCHC 32.6 d/dL (32.0-37.0); MCV 94.7 FL (80.0-97.0); Mean Platelet Volume 12.2 FL (9.5-12.2); Monocytes # (A) 0.43 X 10*3/uL (0.20-1.00); Monocytes % (A) 9.2 %; NRBC Per 100 WBC 0 X 10*3/uL (0.00-0.01); Neutrophils # (A) 2.62 X 10*3/uL (1.80-7.70); Neutrophils % (A) 56.4 %; Platelet Count 213 X 10*3/uL (140-440); RBC 4.95 X 10*6/uL (4.10-5.20); WBC 4.65 X 10*3/uL (4.50-10.00)
== END | disposition home or self-care (01) ==
LOC: LABWHC1 12:49
PROVIDERS: ATTEND Nurse Practitioner Family
DX: K21.9 Gastro-esophageal reflux disease without esophagitis (principal)
CPT/HCPCS: 36415; 80053; 85025

== ENCOUNTER 2022-10-25 16:41 | Emergency (ER) | payer OTHER ==
[2022-10-25 17:28] VITALS: RESP 16
[2022-10-25 20:15] LABS: Basophils % (A) 0 %; Eosinophils # (A) 0.1 k/uL (0-0.7); Eosinophils % (A) 2 %; HCT 43.9 % (34.0-46.0); HGB 14.9 gm/dL (11.4-16.0); Lymphocytes # (A) 1.9 k/uL (1.0-4.8); Lymphocytes % (A) 29 %; MCH 31.3 pg (25.0-35.0); MCV 92.1 fL (80.0-100.0); Mean Platelet Volume 9.2; Monocytes # (A) 0.3 k/uL (0-1.0); Monocytes % (A) 5 %; Neutrophils # (A) 4.1 k/uL (1.3-7.7); Neutrophils % (A) 62 %; Platelet Count 206 k/uL (150-450); RBC 4.76 m/uL (3.80-5.40); RDW 12.3 % (11.5-15.5); WBC 6.6 k/uL (3.8-10.6)
[2022-10-25 20:23] LABS: ALT 30 U/L (4-34); AST 29 U/L (14-36); African American GFR (CKD) >90 (>60 ml/min/1.73 sqM); Alkaline Phosphatase 64 U/L (38-126); Amylase 55 U/L (30-110); Anion Gap 7 mmol/L; Blood Urea Nitrogen 12 mg/dL (7-17); Calcium 8.6 mg/dL (8.4-10.2); Carbon Dioxide 22 mmol/L (22-30); Chloride 109 mmol/L (98-107); Glucose 108 mg/dL (74-99); Lipase 121 U/L (23-300); Non-African American GFR(CKD) >90 (>60 ml/min/1.73 sqM); Potassium 3.7 mmol/L (3.5-5.1); Sodium 138 mmol/L (137-145); Total Bilirubin 0.4 mg/dL (0.2-1.3); Total Protein 6.5 g/dL (6.3-8.2)
--- NOTE | 2022-10-25 20:46 | XR ---
EXAMINATION TYPE: XR KUB DATE OF EXAM: 10/25/2022 Comparison: 10/04/2011 Clinical History: 32-year-old female abdominal pain Findings: Cholecystectomy clips. No dilated small bowel or air-fluid levels. Lung bases are clear. No evidence for free intraperitoneal air. Mild stool particularly in the right side of the abdomen. A few small p hleboliths in the pelvis. Impression: Nonobstructive bowel gas pattern. No evidence for free air. Mild stool in the right side of the abdom en.
[2022-10-25 20:47] LABS: HCG,Quantitative Serum <2.4 mIU/mL
[2022-10-25] MEDS ORDERED: SODIUM CHLORIDE 0.9% 1,000 ML IV ONE (21:49)
[2022-10-25] MEDS ORDERED: KETOROLAC 15 MG/ML 1 ML VIAL IVP STA (21:49)
[2022-10-25] MEDS ORDERED: ONDANSETRON 4 MG/2 ML VIAL IVP STA (21:49)
--- NOTE | 2022-10-25 21:49 | ED ---
Abdominal Pain HPI - General Chief Complaint: Abdominal Pain Stated Complaint: ABD Pain Time Seen by Provider: 10/25/22 20:47 Source: patient Mode of arrival: ambulatory Limitations: no limitations - History of Present Illness Initial Comments: 32-year-old female with no reported past medical history presents emergency room reporting abdominal pain. States for the past couple of weeks she has had significant nausea, vomiting and right upper quadrant abdominal pain. She is status post cholecystectomy. She has been following with her primary care damion whitney in regards to the symptoms. She is scheduled to see Dr. García and have an EGD on November 26. She was previously on Pepcid and Prilosec however denies having any improvement in her symptoms. Recently Dr. García changed her to Bentyl for which she states is also not working. Today the pain was worse in the right upper quadrant radiating into the right lower quadrant. Had an episode of vo miting. Did not take anything for pain before coming in. Denies dysuria, hematuria or difficulty voiding. Denies diarrhea, constipation, black or bloody stools. No fevers. Denies concern for . No other alleviating, precipitating or modifying factors - Related Data Home Medications Medication Instructions Recorded Confirmed Topiramate [Topamax] 300 mg PO HS 01/12/18 10/25/22 Dicyclomine HCl 10 mg PO DAILY 10/25/22 10/25/22 Multivitamins, Thera [Multivitamin 1 tab PO DAILY 10/25/22 10/25/22 (formulary)] Previous Rx's Medication Instructions Recorded Ketorolac [Toradol] 10 mg PO Q8HR #15 tab 10/26/22 Ondansetron Odt [Zofran Odt] 4 mg PO Q8HR PRN #30 tab 10/26/22 Allergies Allergy/AdvReac Type Severity Reaction Status Date / Time Milk Containing Products Allergy Anaphylaxis Verified 10/25/22 22:32 [Dairy] codeine AdvReac Vomiting Verified 10/25/22 22:32 Review of Systems ROS Statement: Those systems with pertinent positive or pertinent negative responses have been documented in the HPI. ROS Other: All systems not noted in ROS Statement are negative. Past Medical History Past Medical History: No Reported History Additional Past Medical History / Comment(s): optic neuritis, migraines History of Any Multi-Drug Resistant Organisms: None Reported Past Surgical History: Cholecystectomy Additional Past Surgical History / Comment(s): sinus surgery, eye surgery, IUD removal Past Anesthesia/Blood Transfusion Reactions: No Reported Reaction Past Psychological History: Anxiety, Depression Smoking Status: Never smoker Past Alcohol Use History: None Reported Past Drug Use History: None Reported - Past Family History Mother Family Medical History: No Reported History General Exam Limitations: no limitations General appearance: alert, in no apparent distress Head exam: Present: atraumatic, normocephalic, normal inspection Eye exam: Present: normal appearance, PERRL, EOMI. Absent: scleral icterus, conjunctival injection, periorbital swelling ENT exam: Present: normal exam, mucous membranes moist Neck exam: Present: normal inspection. Absent: meningismus, lymphadenopathy Respiratory exam: Present: normal lung sounds bilaterally. Absent: respiratory distress, wheezes, rales, rhonchi, stridor Cardiovascular Exam: Present: regular rate, normal rhythm, normal heart sounds. Absent: systolic murmur, diastolic murmur, rubs, gallop, clicks GI/Abdominal exam: Present: soft, tenderness (Right upper quadrant pain), normal bowel sounds. Absent: distended, guarding, rebound, rigid Extremities exam: Present: normal inspection, full ROM, normal capillary refill. Absent: tenderness, pedal edema, joint swelling, calf tenderness Back exam: Present: normal inspection Neurological exam: Present: alert, oriented X3, CN II-XII intact Psychiatric exam: Present: normal affect, normal mood Skin exam: Present: warm, dry, intact, normal color. Absent: rash Course Vital Signs 10/25/22 10/25/22 10/26/22 17:23 21:28 00:34 Temperature 98.7 F 97.9 F Pulse Rate 79 71 70 Respiratory 16 16 16 Rate Blood Pressure 110/71 111/70 113/73 O2 Sat by Pulse 95 100 99 Oximetry Medical Decision Making - Medical Decision Making Was pt. sent in by a medical professional or institution (, PA, PACKING HOUSE LABORER, urgent care, hospital, or residential...) When possible be specific @ -No Did you speak to anyone other than the patient for history (EMS, parent, family, police, friend...)? What history was obtained from this source @ -No Did you review nursing and triage notes (agree or disagree)? Why? @ -I reviewed and agree with nursing and triage notes Were old charts reviewed (outside hosp., previous admission, EMS record, old EKG, old radiological studies, urgent care reports/EKG's, residential records)? Report findings @ -No old charts were reviewed Differential Diagnosis (chest pain, altered mental status, abdominal pain women, abdominal pain men, vaginal bleeding, weakness, fever, dyspnea, syncope, heada aldo, dizziness, GI bleed, back pain, seizure, CVA, palpatations, mental health, musculoskeletal)? @ -Differential Abdominal Pain Men: Appendicitis, cholecystitis, diverticulosis, ischemic bowel, pancreatitis, hepatitis, UTI, gastroenteritis, AAA, incarcerated hernia, bowel obstruction, constipation, inflammatory bowel, hepatitis, peptic ulcer disease, splenic infarction, perforated viscus, testicular torsion, this is not meant to be an all-inclusive list EKG interpreted by me (3pts min.). @ -Yes and demonstrates sinus rhythm with a rate of 60. WI interval 117. QRS 77. QTC of 395. No acute ST segment elevations or depressions X-rays interpreted by me (1pt min.). @ -None done CT interpreted by me (1pt min.). @ -Yes and demonstrates possible pelvic congestion syndrome U/S interpreted by me (1pt. min.). @ -None done What testing was considered but not performed or refused? (CT, X-rays, U/S, labs)? Why? @ -None What meds were considered but not given or refused? Why? @ -None Did you discuss the management of the patient with other professionals (professionals i.e. , PA, P[employer]ING HOUSE LABORER, lab, RT, psych nurse, social work job titles, dry cleaner hand, teacher, chief school finance officer, case briefer)? Give summary @ -No Was smoking cessation discussed for >3mins.? @ -No Was critical care preformed (if so, how long)? @ -No Were there social determinants of health that impacted care today? How? (Homelessness, low income, unemployed, alcoholism, drug addiction, transportation, low edu. Level, literacy, decrease access to med. care, fci, r ehab)? @ -No Was there de-escalation of care discussed even if they declined (Discuss DNR or withdrawal of care, Hospice)? DNR status @ -No What co-morbidities impacted this encounter? (DM, HTN, Smoking, COPD, CAD, Cancer, CVA, ARF, Chemo, Hep., AIDS, mental health diagnosis, sleep apnea, morbid obesity)? @ -None Was patient admitted / discharged? Hospital course, mention meds given and route, prescriptions, significant lab abnormalities, going to OR and other pertinent info. @ -Upon arrival patient was placed into room 24. History and physical exam was performed. IV access was established. She was given nausea and pain medications. Laboratory studies were conducted. Patient does have a CT performed. Laboratory studies and imaging is unremarkable. Patient will be discharged home at this time with a prescription for Toradol and Zofran. Instructed take the medications as directed in order to help alleviate her symptoms. She does have follow-up appointments with her primary care. States that she does have an MRI of her pelvis and right upper quadrant ordered. She is to continue with the studies and with Dr. García. Return for any new or worse savi symptoms. Patient was agreeable plan she was discharged in stable condition Undiagnosed new problem with uncertain prognosis? @ -Yes Drug Therapy requiring intensive monitoring for toxicity (Heparin, Nitro, Insulin, Cardizem)? @ -No Were any procedures done? @ -No Diagnosis/symptom? @ -Acute right-sided abdominal pain, acute nausea Acute, or Chronic, or Acute on Chronic? @ -Acute Uncomplicated (without systemic symptoms) or Complicated (systemic symptoms)? @ -Complicated Side effects of treatment? @ -No Exacerbation, Progression, or Severe Exacerbation? @ -No Poses a threat to life or bodily function? How? (Chest pain, USA, ID, pneumonia, PE, COPD, DKA, ARF, appy, cholecystitis, CVA, Diverticulitis, Homicidal, Suicidal, threat to staff... and all critical care pts) @ -No - Lab Data Result diagrams: 10/25/22 19:54 10/25/22 19:54 Lab Results 10/25/22 10/25/22 10/25/22 Range/Units 19:54 19:54 21:56 WBC 6.6 (3.8-10.6) k/uL RBC 4.76 (3.80-5.40) m/uL Hgb 14.9 (11.4-16.0) gm/dL Hct 43.9 (34.0-46.0) % MCV 92.1 (80.0-100.0) fL MCH 31.3 (25.0-35.0) pg MCHC 34.0 (31.0-37.0) g/dL RDW 12.3 (11.5-15.5) % Plt Count 206 (150-450) k/uL MPV 9.2 Neutrophils % 62 % Lymphocytes % 29 % Monocytes % 5 % Eosinophils % 2 % Basophils % 0 % Neutrophils # 4.1 (1.3-7.7) k/uL Lymphocytes # 1.9 (1.0-4.8) k/uL Monocytes # 0.3 (0-1.0) k/uL Eosinophils # 0.1 (0-0.7) k/uL Basophils # 0.0 (0-0.2) k/uL Sodium 138 (137-145) mmol/L Potassium 3.7 (3.5-5.1) mmol/L Chloride 109 H (98-107) mmol/L Carbon Dioxide 22 (22-30) mmol/L Anion Gap 7 mmol/L BUN 12 (7-17) mg/dL Creatinine 0.71 (0.52-1.04) mg/dL Est GFR (CKD-EPI)AfAm >90 (>60 ml/min/1.73 sqM) Est GFR (CKD-EPI)NonAf >90 (>60 ml/min/1.73 sqM) Glucose 108 H (74-99) mg/dL Calcium 8.6 (8.4-10.2) mg/dL Total Bilirubin 0.4 (0.2-1.3) mg/dL AST 29 (14-36) U/L ALT 30 (4-34) U/L Alkaline Phosphatase 64 (38-126) U/L Total Protein 6.5 (6.3-8.2) g/dL Albumin 4.0 (3.5-5.0) g/dL Amylase 55 (30-110) U/L Lipase 121 (23-300) U/L HCG, Quant <2.4 mIU/mL Urine Color Urine Appearance (Clear) Urine pH (5.0-8.0) Ur Specific [place] (1.001-1.035) Urine Protein (Negative) Urine Glucose (UA) (Negative) Urine Ketones (Negative) Urine Blood (Negative) Urine Nitrite (Negative) Urine Bilirubin (Negative) Urine Urobilinogen (<2.0) mg/dL Ur Leukocyte Esterase (Negative) Urine HCG, Qual Not Detected (Not Detectd) 10/25/22 Range/Units 21:56 WBC (3.8-10.6) k/uL RBC (3.80-5.40) m/uL Hgb (11.4-16.0) gm/dL Hct (34.0-46.0) % MCV (80.0-100.0) fL MCH (25.0-35.0) pg MCHC (31.0-37.0) g/dL RDW (11.5-15.5) % Plt Count (150-450) k/uL MPV Neutrophils % % Lymphocytes % % Monocytes % % Eosinophils % % Basophils % % Neutrophils # (1.3-7.7) k/uL Lymphocytes # (1.0-4.8) k/uL Monocytes # (0-1.0) k/uL Eosinophils # (0-0.7) k/uL Basophils # (0-0.2) k/uL Sodium (137-145) mmol/L Potassium (3.5-5.1) mmol/L Chloride (98-107) mmol/L Carbon Dioxide (22-30) mmol/L Anion Gap mmol/L BUN (7-17) mg/dL Creatinine (0.52-1.04) mg/dL Est GFR (CKD-EPI)AfAm (>60 ml/min/1.73 sqM) Est GFR (CKD-EPI)NonAf (>60 ml/min/1.73 sqM) Glucose (74-99) mg/dL Calcium (8.4-10.2) mg/dL Total Bilirubin (0.2-1.3) mg/dL AST (14-36) U/L ALT (4-34) U/L Alkaline Phosphatase (38-126) U/L Total Protein (6.3-8.2) g/dL Albumin (3.5-5.0) g/dL Amylase (30-110) U/L Lipase (23-300) U/L HCG, Quant mIU/mL Urine Color Light Yellow Urine Appearance Clear (Clear) Urine pH 6.0 (5.0-8.0) Ur Specific [place] 1.011 (1.001-1.035) Urine Protein Negative (Negative) Urine Glucose (UA) Negative (Negative) Urine Ketones Negative (Negative) Urine Blood Negative (Negative) Urine Nitrite Negative (Negative) Urine Bilirubin Negative (Negative) Urine Urobilinogen <2.0 (<2.0) mg/dL Ur Leukocyte Esterase Negative (Negative) Urine HCG, Qual (Not Detectd) Disposition Clinical Impression: Right lower quadrant abdominal pain Disposition: HOME SELF-CARE Condition: Stable Instructions (If sedation given, give patient instructions): Abdominal Pain (ED) Additional Instructions: Please take the pain and nausea medications as needed. Follow up with your primary care doctor and [facility] in regards to your pain and further workup. Return for any new or worsening symptoms Prescriptions: Ketorolac [Toradol] 10 mg PO Q8HR #15 tab Ondansetron Odt [Zofran Odt] 4 mg PO Q8HR PRN #30 tab PRN Reason: Nausea Is patient prescribed a controlled substance at d/c from ED?: No Referrals: Jeff Zapien Jr, [Primary Care Provider] - 1-2 days Time of Disposition: 00:30
[2022-10-25 22:09] LABS: Appearance,Urine Clear (Clear); Bilirubin,Urine Negative (Negative); Blood,Urine Negative (Negative); Color,Urine Light Yellow; Glucose,Urine (UA) Negative (Negative); Ketones,Urine Negative (Negative); Leukocyte Esterase,Urine Negative (Negative); Nitrite,Urine Negative (Negative); Protein,Urine Negative (Negative); Specific Gravity,Urine 1.011 (1.001-1.035); Urobilinogen,Urine <2.0 mg/dL (<2.0)
--- NOTE | 2022-10-25 23:55 | CT ---
EXAM: CT Abdomen and Pelvis With Intravenous Contrast CLINICAL HISTORY: ITS.REASON CT Reason: rlq pain TECHNIQUE: Axial computed tomography images of the abdomen and pelvis with intravenous contrast. CTDI is 14.6 mGy and DLP is 678.7 mGy-cm. This CT exam was performed using one or more of the following dose reduction techniques: automated exposure control, adjustment of the mA and/or kV according to patient size, and/or use of iterative reconstruction technique. COMPARISON: No relevant prior studies available. FINDINGS: Lung bases: Cystic changes within bilateral lower lobes. No additional evidence of interstitial lung disease within the visualized lungs. ABDOMEN: Liver: Unremarkable. No mass. Gallbladder and bile ducts: Gallbladder has been removed. No ductal dilation. Pancreas: Unremarkable. No mass. No ductal dilation. Spleen: Unremarkable. No splenomegaly. Adrenals: Unremarkable. No mass. Kidneys and ureters: Unremarkable. No solid mass. No hydronephrosis. Stomach and bowel: Unremarkable. No obstruction. No mucosal thickening. PELVIS: Appendix: Appendix is identified and within normal limits. Bladder: Unremarkable. No mass. Reproductive: Unremarkable as visualized. ABDOMEN and PELVIS: Intraperitoneal space: Unremarkable. No free air. No significant fluid collection. Bones/joints: No acute fracture. No dislocation. Soft tissues: Unremarkable. Vasculature: Prominent pelvic varicosities, left greater than right with dilated left gonadal vein which can be seen with pelvic congestion syndrome. Lymph nodes: Unremarkable. No enlarged lymph nodes. IMPRESSION: No evidence of acute abdominal or pelvic process. Specifically, the appendix is identified and within normal limits. Prominent pelvic varicosities, left greater than right with dilated left gonadal vein which can be seen with pelvic congestion syndrome. Cystic changes within bilateral lower lobes. No additional evidence of interstitial lung disease within the visualized lungs.
[2022-10-26 00:36] VITALS: BP 113/73; PULSE 70; TEMP 97.9
== END 2022-10-26 00:36 | disposition home or self-care (01) ==
LOC: EC 16:41
DX: R10.31 Right lower quadrant pain (principal); R11.2 Nausea with vomiting, unspecified; Z86.59 Personal history of other mental and behavioral disorders; Z88.5 Allergy status to narcotic agent; Z91.011 Allergy to milk products; Z90.89 Acquired absence of other organs
CPT/HCPCS: 96361 ×3; 96374 ×2; 96375 ×2; 99285 ×2; 36415; 80053; 82150; 83690; 85025; 81003; 81025; 84702; 74018; 74177; J2405; J1885; Q9967; 93005

== ENCOUNTER → 2022-11-02 | Outpatient (CLI) | payer OTHER ==
--- NOTE | 2022-11-03 01:11 | MR ---
EXAMINATION TYPE: MR abdomen wo/w con DATE OF EXAM: 11/02/2022 5:42 PM INDICATION: Patient age:Female; 32 years old; Reason for study: R10.80 LOWER ABDOMINAL PAIN, UNSPECIFIED; . Lower abdominal pain COMPARISON: None TECHNIQUE: Multiplanar multi-sequence imaging was performed without contrast. Post contrast imaging was performed. Post IV contrast subtraction images were also submitted for review. IV Contrast: 6 cc Gadavist FINDINGS: LOWER CHEST: No gross irregularity. ABDOMEN Liver: No liver masses. Gallbladder and Bile ducts: No ductal dilation. The gallbladder appears surgically absent. Pancreas: Unremarkable. Spleen: Unremarkable. Adrenal glands: Unremarkable. Kidneys: No obstructive uropathy. Stomach and Bowel: Unremarkable as visualized. Peritoneum: No evidence of pneumoperitoneum or free fluid. Vasculature: Unremarkable. No aortic aneurysm. Musculoskeletal: The osseous structures appear intact. Lymph Nodes: No gross evidence for lymphadenopathy. Abdominal wall: Fat-containing umbilical hernia. Reproductive: Partially visualized 2.1 cm dominant right follicle. IMPRESSION: No evidence of acute process or abdominal mass. The pelvis is not the [id number].
== END | disposition home or self-care (01) ==
LOC: RADMRIMAIN 16:47
PROVIDERS: ATTEND Family Medicine
DX: R10.30 Lower abdominal pain, unspecified (principal)
CPT/HCPCS: 74183; A9585

== ENCOUNTER → 2022-11-04 | Outpatient (CLI) | payer OTHER ==
[2022-11-05 06:10] LABS: Gliadin AB IgA, Deaminated Negative (Negative); Gliadin AB IgA, Unit <0.5 U/mL; Gliadin AB IgG, Deaminated Negative (Negative); Gliadin AB IgG, Unit <0.4 U/mL
== END | disposition home or self-care (01) ==
LOC: LABWHC1 16:13
PROVIDERS: ATTEND Internal Medicine Cardiovascular Disease
DX: R07.89 Other chest pain (principal)
CPT/HCPCS: 36415; 83516

== ENCOUNTER → 2022-11-05 | Outpatient (CLI) | payer OTHER ==
--- NOTE | 2022-11-07 17:06 | MR ---
EXAMINATION TYPE: MR pelvis wo/w con DATE OF EXAM: 11/05/2022 COMPARISON: CT 10/25/2022. MRI abdomen 11/02/2022. CLINICAL INDICATION:Female, 32 years old with history of R10.80 LOWER ABDOMINAL PAIN, UNSPECIFIED; Pa in right side lower abdominal/ovary area TECHNIQUE: Triplane multisequence imaging was performed of the pelvis. IV Contrast: 6 cc Gadavist FINDINGS: Reproductive: Vagina: Unremarkable. Uterus: The uterus is anteverted in position. Uterus measures 8.3 x 4.8 x r5.9 cm. The endometrium an d junctional zone are within normal limits. Multiple nabothian cysts are seen in the lower uterine s egment. Ovaries: Follicular changes are noted to the ovaries. The left ovary measures 2.7 x 1.5 x 2.3 cm. Multiple follicular changes noted. Right ovary measures 3.8 x 2.5 x 2.7 cm. Follicular changes are noted. Bladder: Unremarkable. Bowel: The appendix is visualized and normal. Peritoneum: A small amount of free fluid in the pelvis. Lymph nodes: No evidence of adenopathy. Vasculature: No dilated vessels are seen in the bilateral pelvis. Similar prior to CT findings. There is narrowing of the left renal vein as it crosses the aorta in the superior mesenteric artery. Musculoskeletal: Bone marrow signal is within normal signal intensity. Abdominal wall/soft tissues: Unremarkable. IMPRESSION: 1. 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 This re sults in prominent pelvic varicosities, left greater than right with dilated left gonadal vein which can be seen with pelvic congestion syndrome. 2. Slight asymmetric increased size of the right ovary versus the left. Both contain follicle change s. 3. The appendix is visualized and normal.
== END | disposition home or self-care (01) ==
LOC: RADMRIMAIN 16:41
PROVIDERS: ATTEND Family Medicine
DX: R10.30 Lower abdominal pain, unspecified (principal); I86.2 Pelvic varices
CPT/HCPCS: 72197; A9585

== ENCOUNTER 2022-11-26 11:37 | Day surgery (SDC) | payer OTHER ==
[2022-11-25 11:56] VITALS: BMI 22.3
[2022-11-26] MEDS ORDERED: LIDOCAINE 1% (10MG/ML) FOR IV START INTRADERMA PRN (12:12)
[2022-11-26] MEDS ORDERED: LACTATED RINGERS 1,000 ML IV SCH (12:12)
[2022-11-26] MEDS ORDERED: ONDANSETRON 4 MG/2 ML VIAL IVP PRN (12:12)
[2022-11-26 12:27] VITALS: TEMP 98.6
[2022-11-26] MEDS ORDERED: PROPOFOL 10 MG/ML 20 ML VIAL IV ONE (12:45)
--- NOTE | 2022-11-26 13:03 | P.PCN ---
Date of Procedure: 11/26/22 Procedure(s) Performed: BRIEF HISTORY: Patient is a 32-year-old, pleasant, white female scheduled for an upper endoscopy as a part of evaluation of atypical chest pain for the last 9 months duration. She has been on PPIs and Pepcid with no help. Cardiac workup was negative.. PROCEDURE PERFORMED: Esophagogastroduodenoscopy with biopsy. PREOPERATIVE DIAGNOSIS: atypical chest pain. IV sedation per anesthesia. PROCEDURE: After informed consent was obtained, the patient was brought into the endoscopy unit. IV sedation was administered by Anesthesia under continuous monitoring. Initially the Olympus GIF-140 video endoscope was inserted into the mouth. Esophagus intubated without any difficulty. It was gradually advanced into the stomach and duodenum and carefully examined. The bulb and the second part of the duodenum appeared normal.biopsies were done from the duodenum to rule out celiac disease The scope at this time was withdrawn to the stomach, adequately insufflated with air, and upon careful examination, mucosa of the antrum,had diffuse gastritis and biopsies were done from this area. The body, cardia and the fundus appeared normal. The scope was then withdrawn into the esophagus. The GE junction was located at 39 cm from the incisors. small hiatal hernia noted.The esophagus appeared normal. There were 2 superficial erosions consistent with LA grade B reflux esophagitis seen and the patient tolerated the procedure well. IMPRESSION: 1. Mild antral gastritis. 2. Small hiatal hernia and LA grade B reflux esophagitis. RECOMMENDATIONS: The findings of this examination were discussed with the patient as well as a family. She was advised to follow with the biopsy results. Recommend aggressive acid suppressive therapy withProtonix 40 mg twice daily for 3 months. follow antireflux measures.
[2022-11-26 13:44] VITALS: BP 103/71; PULSE 66; RESP 18
== END 2022-11-26 14:04 | disposition home or self-care (01) ==
LOC: ORWHC2ENDO 11:37
PROVIDERS: ATTEND Internal Medicine Gastroenterology
DX: K29.50 Unspecified chronic gastritis without bleeding (principal); K21.00 Gastro-esophageal reflux disease with esophagitis, without bleeding; K44.9 Diaphragmatic hernia without obstruction or gangrene; Z79.899 Other long term (current) drug therapy; Z88.5 Allergy status to narcotic agent
CPT/HCPCS: 81025; 88305; 43239; J2704

== ENCOUNTER → 2024-02-16 | Outpatient (CLI) | payer OTHER ==
[2024-02-16 16:26] LABS: % Iron Saturation 30.17 (12.00-45.00); Testosterone 58.7 ng/dL (9.01-47.94)
[2024-02-16 16:37] LABS: Follicle Stimulating Hormone 3.4 mIU/mL; Luteinizing Hormone 3.4 mIU/mL; Prolactin 8.3 ng/mL (2.800-29.200)
== END | disposition home or self-care (01) ==
LOC: LABWHC1 10:58
PROVIDERS: ATTEND Nurse Practitioner
DX: L65.9 Nonscarring hair loss, unspecified (principal)
CPT/HCPCS: 36415; 82607; 82671; 83001; 83002; 83540; 83550; 84146; 84403